=== PATIENT | male | born 1930 | race Caucasian/White ===

== ENCOUNTER 2017-03-13 20:37 | Inpatient (IN) | payer MEDICARE, BC ==
[2017-03-13 21:08] LABS: #Basophils 0.1 thou/uL (0.0-0.2); #Eosinphils 0.2 thou/uL (0.0-0.7); #Lymphocytes 1.1 thou/uL (1.20-3.40); #Monocytes 0.7 thou/uL (0.11-0.59); #Neutrophils 6.7 thou/uL (1.40-6.50); %Basophils 0.6 % (0.0-1.0); %Eosinophils 2.6 % (0.0-10.0); %Lymphocytes 12.4 % (21.0-51.0); Hematocrit 39.2 % (42.0-52.0); Mean Platelet Volume 6.2 fL (7.4-10.4); Red Blood Cell (RBC) Count 4.03 mill/uL (4.70-6.10); White Blood Cell (WBC) Count 8.8 thou/uL (4.8-10.8)
--- NOTE | 2017-03-13 21:17 | RAD ---
RADIOGRAPH CHEST 1 VIEW: Date: 03-13-17 Time: 8:52 p.m. HISTORY: 87-year-old male with dyspnea and chest tightness. COMPARISON: Although the patient has had numerous prior imaging studies, none of them involve the chest. FINDINGS: There are mild to moderate interstitial densities throughout the left mid and lower lung zones, and a t the right base. The rest of the right lung is relatively clear. No cardiomegaly or pneumothorax. IMPRESSION: Interstitial densities involving much of the left lung and the right base. It is uncertain whether th bryant are acute, chronic, or a combination of both. JANUSZ POS: AYO
[2017-03-13 21:28] LABS: ALT (SGPT) 11 U/L (8-55); AST (SGOT) 18 U/L (5-34); Alkaline Phosphatase 66 U/L (40-150); Anion Gap 11 mmol/L (10-20); BUN (Urea Nitrogen) 17 mg/dL (8.4-25.7); Bilirubin, Total 0.6 mg/dL (0.2-1.2); Calc. Creatinine Clearance 0 mL/min (70-130); Calcium 8.6 mg/dL (7.8-10.44); Carbon Dioxide 25 mmol/L (23-31); Chloride 93 mmol/L (98-107); Estimated GFR-MDRD 89; Globulin 3.2 g/dL (2.4-3.5); Protein, Total 6.9 g/dL (5.8-8.1)
[2017-03-13] MEDS ORDERED: Furosemide 40 MG/4 ML VIAL ONE (21:55)
[2017-03-13 22:30] LABS: Troponin I Less than 0.010 ng/mL (< 0.028)
[2017-03-13] MEDS ORDERED: Nitroglycerin 2% Ointment 1 INCH/1 GM Packet ONE (23:21)
--- NOTE | 2017-03-14 00:04 | PDOC.EVN ---
Event Note - Event Note Event Note: [id number] H&P Dictated 1. Acute CHF exacerbation 2. HTN 3. H/O BPH Plan: see orders
[2017-03-14 00:52] LABS: Prothrombin Time 13.4 SEC (12.0-14.7)
[2017-03-14 03:26] VITALS: BMI 30.6
[2017-03-14] MEDS: Acetaminophen 500 MG TAB PO PRN ×3 (03:42→20:55)
[2017-03-14 05:17] LABS: #Basophils 0.1 thou/uL (0.0-0.2); #Eosinphils 0.3 thou/uL (0.0-0.7); #Lymphocytes 1.6 thou/uL (1.20-3.40); #Monocytes 0.8 thou/uL (0.11-0.59); #Neutrophils 4.8 thou/uL (1.40-6.50); %Basophils 0.9 % (0.0-1.0); %Eosinophils 3.8 % (0.0-10.0); %Lymphocytes 20.5 % (21.0-51.0); %Monocytes 11.1 % (0.0-10.0); Hematocrit 37.7 % (42.0-52.0); Mean Platelet Volume 6.1 fL (7.4-10.4); Red Blood Cell (RBC) Count 3.92 mill/uL (4.70-6.10); White Blood Cell (WBC) Count 7.5 thou/uL (4.8-10.8)
[2017-03-14 05:34] LABS: Anion Gap 12 mmol/L (10-20); BUN (Urea Nitrogen) 14 mg/dL (8.4-25.7); Calc. Creatinine Clearance 95 mL/min (70-130); Calcium 8.7 mg/dL (7.8-10.44); Carbon Dioxide 27 mmol/L (23-31); Chloride 93 mmol/L (98-107); Estimated GFR-MDRD Greater than 90; Uric Acid 4.2 mg/dL (3.5-7.2)
[2017-03-14] MEDS: Furosemide 40 MG/4 ML VIAL SLOW IVP SCH ×2 (06:28→11:29)
--- NOTE | 2017-03-14 07:20 | HP ---
DATE OF ADMISSION: 03/13/2017 CHIEF COMPLAINT: Dyspnea. HISTORY OF PRESENT ILLNESS: The patient is an 87-year-old male with past medical history of congesti ve heart failure, hypertension, transient ischemic attack, benign prostatic hypertrophy, came to the ER complaining of dyspnea, dyspnea started few days back, dyspnea , lying flat. Denies chest pa in, denies any chest tightness. Complains of some low grade fever also. The patient complains of so me nausea and decreased p.o. intake and fatigue. The patient's symptoms persisted that is why he cam e to the ER. The patient complains of chronic lower extremity swelling, but swelling is more pronoun javier now, but improving with stockings. Denies any fever, denies any cough, denies sputum production. PAST MEDICAL HISTORY: As per HPI. PAST SURGICAL HISTORY: Colon resection. SOCIAL HISTORY: Positive for alcohol usage. Denies smoking. Denies any drugs. FAMILY HISTORY: Denies any heart problems. REVIEW OF SYSTEMS: Constitutional: Reports low grade fever. Denies any chills. Eyes: Denies any vision problems. Ears: Denies any hearing loss. Neck: Denies any neck pain. Cardiovascular syste m: Positive for chest pain, tightness, mild. Respiratory system: Positive for dyspnea. Gastrointe stinal: Positive for nausea. Cranial nerve system: Denies any syncope, denies lightheadedness. Mu sculoskeletal: Positive for bilateral lower extremity swelling. Integumentary: Denies any rash. A ll other review of systems are reviewed and are negative. PHYSICAL EXAMINATION: CONSTITUTIONAL/VITAL SIGNS: At the time of H&P performed, blood pressure is 150/71, pulse ox 96%, he art rate 61, respiratory rate 18. GENERAL APPEARANCE: The patient appears tired. HEENT: Anterior nares patent. NECK: Supple. No JVD. RESPIRATORY SYSTEM: Positive for crackles. Positive for occasional wheeze, no rhonchi. Normal effo rt. CARDIOVASCULAR SYSTEM: S1, S2 present. Regular rate and rhythm. No murmurs, no rubs, no gallops. GASTROINTESTINAL: Abdomen is soft, nontender, no guarding, no organomegaly, no masses felt. MUSCULOSKELETAL: Bilateral lower extremities, 2+ pitting edema present. Moves all joints. PSYCHIATRIC: Mood is appropriate at this time. INTEGUMENTARY: No obvious rashes seen. LABORATORY DATA: At the time of H&P performed, white count 8.8, hemoglobin 13, and platelet count is 262. BMP shows sodium 125, potassium 4.4, chloride 93, CO2 of 25, BUN of 17, creatinine 0.82. BNP 897, troponin less than 0.010. Chest x-ray positive for interstitial densities involving left lung a nd the right base. ASSESSMENT AND PLAN: The patient is an 87-year-old male. 1. Acute congestive heart failure exacerbation, possible systolic. Plan to start the patient on IV Lasix 40 mg b.i.d. Plan to monitor the patient closely. 2. Hyponatremia. Monitor sodium level closely. Plan to consult Nephrology to evaluate the patient and we will check repeat BMP in 4 hours. 3. History of hypertension. Monitor blood pressure. Continue home blood pressure medications. 4. History of benign prostatic hypertrophy. Continue Flomax. 5. History of transient ischemic attack. Continue Plavix. The case was discussed in detail with the patient and patient's family members also.
[2017-03-14] MEDS: Carvedilol 6.25 MG TAB PO SCH ×2 (08:58→20:55)
[2017-03-14] MEDS ORDERED: Lisinopril 10 MG TAB PO SCH (09:00)
[2017-03-14 11:18] LABS: Anion Gap 11 mmol/L (10-20); BUN (Urea Nitrogen) 15 mg/dL (8.4-25.7); Calc. Creatinine Clearance 89 mL/min (70-130); Calcium 8.4 mg/dL (7.8-10.44); Carbon Dioxide 29 mmol/L (23-31); Chloride 93 mmol/L (98-107); Estimated GFR-MDRD 87
--- NOTE | 2017-03-14 11:43 | CON ---
DATE OF CONSULTATION: 03/14/2017 REASON FOR CONSULTATION: Hyponatremia. HISTORY OF PRESENT ILLNESS: This is a very pleasant 87-year-old gentleman who presented to the [facility] early this morning with a 1 day history of dyspnea. The patient also had leg swelling and creati nine was normal. Sodium was 125 so we were consulted. PAST MEDICAL HISTORY: Congestive heart failure, TIA, dyspnea, BPH, colon resection. SOCIAL HISTORY: No alcohol or drug use. FAMILY HISTORY: Negative for ESRD. ALLERGIES: Reviewed. HOME MEDICATIONS: List reviewed. REVIEW OF SYSTEMS: A 15-point review of systems was performed and negative except positives noted ab ove. GENERAL: Weakness- HEAD: Headache- NECK: No swelling or lumps. NOSE: No epistaxis or discharge. EYES: No diplopia or pain. RESPIRATORY: Dyspnea- CARDIOVASCULAR: Chest pain- GASTROINTESTINAL: Nausea- /DIE CUTTING MACHINE OPERATOR: Hematuria- MUSCULOSKELETAL: No joint pain. NEUROPSYCHIATIC SYSTEMS: No suicidal ideation. No ideation. SKIN: Denies any rash or ulcer. CONSTITUTIONAL: No fever or chills. PHYSICAL EXAMINATION: GENERAL: Patient is awake, alert. VITAL SIGNS: Afebrile, pulse 75, breathing 16, blood pressure 150/71. OBJECTIVE: See above. Awake, alert, in no acute distress. GENERAL APPEARANCE AND MENTAL STATUS: Fair. HEAD/NECK: Normocephalic. Atraumatic. EYES: EOMI. No deformity. EARS: Clear. No ulcers. NOSE: Intact. No lesions. MOUTH: Clear. No discharge. THROAT: Clear. No exudate. LUNGS: Clear. No crackles. CARDIAC: S1, S2. No rub. ABDOMEN: Benign. BS+. GENITALIA/RECTUM: Moss absent. BACK/EXTREMITIES: Edema 0+ Ulcer- NEUROLOGICAL: Alert and motor intact. SKIN: Rash- Bruise- LYMPHATICS: Edema- Ulcer- LABORATORY: Hemoglobin 12.5, sodium 128. ASSESSMENT AND RECOMMENDATIONS: 1. Hyponatremia because of volume overload. Agree with Lasix. We will change Lasix to once a day a nd recheck sodium twice a day. 2. Hypoosmolality. 3. Hypokalemia, stable. 4. Medications based on glomerular filtration rate are appropriate. 5. Congestive heart failure, stable. No indication for hypertonic saline or Vaptan therapy. The above findings were discussed with the ally smith and his family who was present at bedside.
--- NOTE | 2017-03-14 15:16 | CON ---
DATE OF SERVICE: 03/14/2017 CARDIOLOGY CONSULTATION INDICATION FOR CONSULTATION: An 87-year-old gentleman with new onset of congestive heart failure. HISTORY OF PRESENT ILLNESS: This 87-year-old gentleman who has been followed by Dr. Huerta for qu ite some time now. He has a history of aortic valve stenosis as well as hypertension. He recently w as seen with some hyponatremia, I believe in an outside facility and was treated with diuretics and i mproved. He then yesterday started developing increasing shortness of breath and dyspnea. He was br ought to the hospital by his family and was admitted with some congestive heart failure symptoms and hyponatremia. At this time, he denied any chest pain. He does not have any significant shortness of breath at this time, but he is lying in the bed and is inactive. He did have an echocardiogram in [facility] of last year which showed an ejection fraction of 55%-60% with severe aortic valve stenosis, aort ic valve area 0.62 cm2. There has been no intervention or further workup for the aortic valve since that time. He does have mild mitral and tricuspid valve regurgitation also. At this time, he has di uresed quite a bit and is feeling better and will continue on his present medications. PAST MEDICAL HISTORY: Significant for hypertension, TIA, aortic valve stenosis, L1 burst fracture, h istory of colon cancer with colectomy. He also has obesity. SOCIAL HISTORY: He has 2 children who are alive and well. There is no alcohol or tobacco abuse. FAMILY HISTORY: Noncontributory. ALLERGIES: None. MEDICATIONS: Prior to admission included Coreg at 12.5 mg b.i.d. He is taking Plavix 75 mg a day, ca lcitonin, tamsulosin, takes timolol ophthalmic drops, Lumigan ophthalmic drops, lorazepam, tramadol, and hydrocortisone cream. REVIEW OF SYSTEMS: Twelve point review of systems is unremarkable except what was noted in the histo ry of present illness. He does have macular degeneration and takes ophthalmic drops. He also has ch ronic constipation and takes a stool softer on a daily basis at least every other day. PHYSICAL EXAMINATION: GENERAL: Reveals an elderly gentleman in no acute distress at this time. VITAL SIGNS: Blood pressure 156/70, he was given lisinopril and blood pressure decreased to 91/52, h eart rate is 73 and irregular. He is afebrile. O2 saturation 95%, respiratory rate 18. HEENT: Reveals head to be normocephalic and atraumatic. Carotid pulses are present. No bruits are noted. CHEST: Clear to auscultation. He has very minimal rales noted in the right base. CARDIOVASCULAR: There were no significant murmurs, heaves, thrills, bruits or rubs except for the ao rtic valve stenosis which is a 3/6 murmur which radiates to the upper sternal area. ABDOMEN: Shows obesity with positive bowel sounds. EXTREMITIES: Showed no clubbing or cyanosis. He has 1-2+ lower extremity edema in lower legs and th e ankle area. Pedal pulses are present. NEUROLOGIC: The patient appears to be intact. IMAGING DATA: EKG shows normal sinus rhythm with a right bundle branch block. LABORATORY DATA: Shows sodium of 129, potassium 3.6, creatinine 0.83. His BNP was 897. IMPRESSION: 1. New onset congestive heart failure which may be due to volume overload associated with perhaps di astolic dysfunction or due to his aortic valve stenosis or due to just volume overload. I would agre e with some diuresis. At this time he seems to have improved already after starting diuresis. I wou ld need to reevaluate the aortic valve by echocardiogram to see whether or not this may be more signi ficant stenosis and this has been his thought. He may eventually need to undergo cardiac catheteriza tion to determine the exact gradient across the aortic valve indeterminate size. He may be a trudy te to undergo a TAVR versus consensual aortic valve replacement if this is so indicated. 2. Hyponatremia and hypokalemia. These will be treated medically and he seems to be improving. We will await results of the echocardiogram prior to further recommendations per Dr. Huerta who will resume his care when he sees him tomorrow.
--- NOTE | 2017-03-14 16:27 | PDOC.PN ---
- Subjective Encounter Start Date: 03/14/17 Encounter Start Time: 16:25 Subjective: Seen and examined -transient hypotension noted earlier today - Objective Vital Signs & Weight: Vital Signs (12 hours) Temp Pulse Resp BP Pulse Ox 03/14/17 12:21 98.1 F 59 L 16 128/59 L 95 03/14/17 11:00 91/52 L 03/14/17 08:45 97.3 F L 73 18 156/70 H 95 03/14/17 08:05 97.3 F L 73 18 Weight Weight 225 lb 1.6 oz I&O: 03/13/17 03/14/17 03/15/17 06:59 06:59 06:59 Intake Total 360 Output Total 800 Balance -440 Result Diagrams: 03/14/17 05:03 03/14/17 10:24 Phys Exam - Physical Examination Constitutional: NAD HEENT: PERRLA, moist MMs, sclera anicteric, TM's clear Neck: no nodes, no JVD, supple, full ROM Respiratory: no wheezing, no rales, no rhonchi, clear to auscultation bilateral Cardiovascular: RRR, no significant murmur, no rub Gastrointestinal: soft, non-tender, no distention, positive bowel sounds Musculoskeletal: pulses present, edema present Dx/Plan (1) Hypotension Status: Acute (2) CHF (congestive heart failure) Code(s): I50.9 - HEART FAILURE, UNSPECIFIED Status: Acute (3) Hyponatremia Code(s): E87.1 - HYPO-OSMOLALITY AND HYPONATREMIA Status: Acute Comment: Improving, [id number] (4) Aortic stenosis, severe Code(s): I35.0 - NONRHEUMATIC AORTIC (VALVE) STENOSIS Status: Chronic (5) BPH (benign prostatic hyperplasia) Code(s): N40.0 - BENIGN PROSTATIC HYPERPLASIA WITHOUT LOWER URINRY TRACT SYMP Status: Chronic - Plan plan discussed w/ family, PT/OT, respiratory therapy Reduce Acei dose -: monitor oerthostasis and BP -: Cardiology/Renal following -: Dispo planning * .
[2017-03-14 16:41] LABS: Anion Gap 10 mmol/L (10-20); BUN (Urea Nitrogen) 18 mg/dL (8.4-25.7); Calc. Creatinine Clearance 81 mL/min (70-130); Calcium 8.7 mg/dL (7.8-10.44); Carbon Dioxide 30 mmol/L (23-31); Chloride 93 mmol/L (98-107); Estimated GFR-MDRD 79
[2017-03-14] MEDS: Clopidogrel Bisulfate 75 MG TAB PO SCH (20:54)
[2017-03-15 05:28] LABS: Troponin I Less than 0.010 ng/mL (< 0.028)
[2017-03-15] MEDS: Furosemide 40 MG/4 ML VIAL SLOW IVP SCH ×2 (06:08→14:44)
--- NOTE | 2017-03-15 08:04 | PRG ---
DATE OF SERVICE: 03/15/2017 Mr. Torre is feeling much better. His shortness of breath has improved. He has diuresed. PHYSICAL EXAMINATION: VITAL SIGNS: Blood pressure 157/70, pulse 89, TEMPERATURE 97.7. LUNGS: Clear to auscultation. CARDIAC: Regular rate and rhythm with a 2/6 systolic ejection murmur. ABDOMEN: Soft. Nontender. EXTREMITIES: No edema. PERTINENT LABORATORY DATA: Hemoglobin 12.5, creatinine 0.91. Echo with Doppler shows severe aortic stenosis with valve area 0.68 with a mean peak gradient of 90 a nd 70. IMPRESSION: 1. Severe aortic stenosis. 2. Shortness of breath. RECOMMENDATIONS: I had a long discussion with Mr. Torre as well as his son about options. We discus sed SVAR versus TVAR in addition to medical therapy. I did state that medical therapy in this case would not be indicated. I did have a long discussion with the progression of workup including left a nd right heart catheterization in addition to a consultation with a surgeon to determine his risk. I f felt to be an increased risk, I discussed consideration for TVAR. I discussed coronary angiography with possible PCI in full detail. The risks of the procedure included, but are not limited to the f ollowing: , stroke, [place], need for emergency surgery, loss of limb, bleeding, and infection, as w ell as a reaction to the dye causing kidney failure and needing long-term dialysis. I also discussed the risks of PCI to include all of the above including coronary dissection and perforation in additi on to acute stent thrombosis and restenosis. All questions about the procedure were answered. Given the above, the patient agreed to proceed with coronary angiography and possible PCI. I also discussed right heart catheterization. Otherwise, at this point, I have no further recommenda tions.
[2017-03-15] MEDS: Lisinopril 2.5 MG TAB PO SCH (08:59)
[2017-03-15] MEDS: Carvedilol 6.25 MG TAB PO SCH ×2 (09:00→20:09)
--- NOTE | 2017-03-15 09:11 | PRG ---
DATE OF SERVICE: 03/15/2017 SUBJECTIVE: This is an 87-year-old gentleman being seen for hyponatremia. The patient denies any na usea, vomiting, or chest pain. PHYSICAL EXAMINATION: GENERAL: Patient is awake, alert. VITAL SIGNS: Afebrile, pulse 58, breathing at 16, blood pressure 121/60. OBJECTIVE: See above. Awake, alert, in no acute distress. GENERAL APPEARANCE AND MENTAL STATUS: Fair. HEAD/NECK: Normocephalic. Atraumatic. EYES: EOMI. No deformity. EARS: Clear. No ulcers. NOSE: Intact. No lesions. MOUTH: Clear. No discharge. THROAT: Clear. No exudate. LUNGS: Clear. No crackles. CARDIAC: S1, S2. No rub. ABDOMEN: Benign. BS+. GENITALIA/RECTUM: Moss absent. BACK/EXTREMITIES: Edema 0+ Ulcer- NEUROLOGICAL: Alert and motor intact. SKIN: Rash- Bruise- LYMPHATICS: Edema- Ulcer- LABORATORY: Hemoglobin 12.5, sodium is pending. ASSESSMENT AND RECOMMENDATIONS: 1. Stage II chronic kidney disease, stable. 2. Hyponatremia. We will recheck sodium today. 3. Hypertension, stable. 4. Medications based on glomerular filtration rate are appropriate. 5. 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
[2017-03-15 10:21] LABS: Anion Gap 12 mmol/L (10-20); BUN (Urea Nitrogen) 17 mg/dL (8.4-25.7); Calc. Creatinine Clearance 86 mL/min (70-130); Carbon Dioxide 30 mmol/L (23-31); Chloride 91 mmol/L (98-107); Estimated GFR-MDRD 85
[2017-03-15] MEDS ORDERED: Heparin 1000 UNIT/NS 500ML(OR) 1,000 ML ONE (11:23)
[2017-03-15] MEDS ORDERED: Communication Order-Pharmacy FS SCH (12:15)
[2017-03-15] MEDS ORDERED: Sodium Chloride 0.9% 1,000 ML IV SCH ×2 (12:15→13:15)
[2017-03-15] MEDS ORDERED: Heparin 1000 UNIT/NS 500ML(OR) 500 ML ONE (12:35)
[2017-03-15] MEDS ORDERED: Acetaminophen/Codeine 30-300mg Tablet PO PRN ×2 (13:02)
[2017-03-15] MEDS ORDERED: Nitroglycerin 0.4 MG TAB (25 Tab Bottle) SL PRN (13:02)
[2017-03-15] MEDS ORDERED: traMADol HCl 50 MG TAB PO PRN (13:02)
[2017-03-15] MEDS ORDERED: Sodium Chloride 0.9% 200 ML IV SCH (13:15)
[2017-03-15] MEDS ORDERED: Iopamidol 370 76% 100 ML VIAL ONE (17:05)
[2017-03-15] MEDS: Latanoprost 0.005% Ophth Soln 2.5 ml Bottle EA EYE SCH (20:09)
[2017-03-15] MEDS: Clopidogrel Bisulfate 75 MG TAB PO SCH (20:09)
--- NOTE | 2017-03-15 22:26 | CON ---
DATE OF CONSULTATION: 03/15/2017 HISTORY OF PRESENT ILLNESS: This is an 87-year-old gentleman admitted with congestive heart failure symptoms. He has had progressive dyspnea and lower extremity edema. He has been followed by Dr. Rick skinner for at least the past 6-10 years. His medical diagnoses include hypertension. Last year, he suffered a compression fracture at the L3 vertebral body and cardiac echo at that time demonstrated s [id number] aortic valve stenosis. Repeat echo was done this admission; however, the final rep ort is not available, but the preliminary report suggested a peak gradient of about 80 with a valve a ramos of 0.65, which is similar, I believe, to the echo about a year and a half ago. In addition, he h as undergone cardiac catheterization demonstrating severe circumflex disease prior to a distal obtuse marginal and severe proximal LAD disease proximal to an LAD diagonal bifurcation with only mild righ t coronary artery disease. PAST MEDICAL HISTORY: As mentioned, his past medical history includes a diagnosis of hypertension as well as obesity. He has had a prior transient ischemic attack and has prostatic hypertrophy. PAST SURGICAL HISTORY: Includes colon resection and arthroplasty for the L3 burst fracture. SOCIAL HISTORY: He is a retired vice president of engineering, lives alone, although has a daughter and son who pro vide nearly 24-hour assistance. He gets around with a wheeled walker and does walk in the driveway e veryday. IMAGING STUDIES: Chest x-ray is unremarkable. LABORATORY VALUES: Notable for a creatinine of 0.9 and a hemoglobin of 12.8. He does have a first-d egree AV block as well as a bundle branch block. PHYSICAL EXAMINATION: To follow. At this time, the patient is recovering from his cardiac catheterization and a recent bout of congest marvel heart failure. MEDICATIONS: Prior to admission included eye drops, Plavix 75 a day, Flomax 0.4 a day, MiraLax daily , aspirin 81 a day, Coreg 12.5 b.i.d., lorazepam 0.5 p.r.n. Since in the hospital, he has had the ad dition of Lasix periodic IV push as well as 2.5 of lisinopril daily. ASSESSMENT AND PLAN: I have had a long discussion with the son and daughter and at this time, I thin k the patient should be medically managed for his heart failure and discharged off his Plavix and I w ill see him back in the office in a couple of weeks and if he is functionally recovered from his hosp ital stay, consider aortic valve replacement and coronary bypass grafting to the left anterior descen ding and obtuse marginal. Preliminary STS risk factors without complete echocardiogram results sugge st a mortality of 5.7%, morbidity of 31%, stroke of about 3%, renal failure of about 10%, and re-oper ation of about 11%.
[2017-03-16 06:11] LABS: Anion Gap 13 mmol/L (10-20); BUN (Urea Nitrogen) 17 mg/dL (8.4-25.7); Calc. Creatinine Clearance 89 mL/min (70-130); Calcium 8.5 mg/dL (7.8-10.44); Carbon Dioxide 28 mmol/L (23-31); Chloride 93 mmol/L (98-107); Estimated GFR-MDRD 89
[2017-03-16] MEDS: Carvedilol 6.25 MG TAB PO SCH ×2 (06:13→20:56)
[2017-03-16] MEDS: Furosemide 40 MG/4 ML VIAL SLOW IVP SCH ×2 (06:28→20:00)
[2017-03-16] MEDS: Acetaminophen 500 MG TAB PO PRN ×2 (08:31→20:48)
[2017-03-16] MEDS: Lisinopril 2.5 MG TAB PO SCH (08:32)
[2017-03-16 09:07] LABS: #Eosinphils 0.3 thou/uL (0.0-0.7); #Lymphocytes 1.1 thou/uL (1.20-3.40); #Monocytes 1.1 thou/uL (0.11-0.59); #Neutrophils 5.8 thou/uL (1.40-6.50); %Basophils 0.5 % (0.0-1.0); %Eosinophils 3.3 % (0.0-10.0); %Lymphocytes 13.1 % (21.0-51.0); %Monocytes 13.1 % (0.0-10.0); Hematocrit 39.5 % (42.0-52.0); Mean Platelet Volume 6.2 fL (7.4-10.4); Red Blood Cell (RBC) Count 4.06 mill/uL (4.70-6.10); White Blood Cell (WBC) Count 8.3 thou/uL (4.8-10.8)
[2017-03-16 09:38] LABS: Anion Gap 12 mmol/L (10-20); BUN (Urea Nitrogen) 19 mg/dL (8.4-25.7); Calc. Creatinine Clearance 73 mL/min (70-130); Calcium 8.8 mg/dL (7.8-10.44); Carbon Dioxide 29 mmol/L (23-31); Chloride 93 mmol/L (98-107); Estimated GFR-MDRD 75
[2017-03-16] MEDS: Calcitonin,Salmon,Synthetic 200 Units 3.7 ML PUMP FS SCH (10:06)
[2017-03-16] MEDS ORDERED: Sodium Chloride 0.9% 250 ML 250 ML IVPB SCH (10:15)
--- NOTE | 2017-03-16 12:50 | ADD-CON ---
ADDENDUM Of my consult from yesterday. I had a chance to examine the patient today with the family present. He is alert and cooperative, re ceiving an IV bolus of fluid for slightly depressed blood pressure, although he is not symptomatic. Neck exam, I do not appreciate any bruits. Cardiac exam, he has a harsh systolic murmur across the p recordium. Lungs are clear to auscultation. Abdomen was obese and nontender. Extremities, he has p alpable femoral and popliteal pulses and I do not appreciate any pedal pulses and he does not have an y peripheral edema today. I once again discussed the situation this time with the patient primarily going over the options of s urgical intervention and risks and recovery issues. I have given the son, the STS risk stratificatio n for the patient based on the numbers that I had available last night. His final echo report has be come available with a peak gradient of about 90, mean gradient of about 50 and an aortic valve area o f about 0.65. Peak velocity is about 485 cm per second. The patient will follow up with me next tue if he wishes to discuss this further. If he wishes to have surgery, he can call the office and t that scheduled and if he does not wish to have any intervention, then he will need to follow up liliam Huerta for medical management.
--- NOTE | 2017-03-16 14:23 | PRG ---
DATE OF SERVICE: 03/16/2017 SUBJECTIVE: An 87-year-old gentleman being seen for hyponatremia. The patient denies any nausea, vo miting, or chest pain. OBJECTIVE: See above. GENERAL: Patient is awake, alert. VITAL SIGNS: Afebrile, pulse 59, breathing at 16, blood pressure 126/56. GENERAL APPEARANCE AND MENTAL STATUS: Fair. HEAD/NECK: Normocephalic. Atraumatic. EYES: EOMI. No deformity. EARS: Clear. No ulcers. NOSE: Intact. No lesions. MOUTH: Clear. No discharge. THROAT: Clear. No exudate. LUNGS: Clear. No crackles. CARDIAC: S1, S2. No rub. ABDOMEN: Benign. BS+. GENITALIA/RECTUM: Moss absent. BACK/EXTREMITIES: Edema 0+, ulcer. NEUROLOGICAL: Alert and motor intact. SKIN: Rash - bruise. LYMPHATICS: Edema - ulcer. LABORATORY DATA: Labs show sodium 130. ASSESSMENT AND RECOMMENDATIONS: 1. Chronic kidney disease, stage 2, stable. 2. Hyponatremia, improved. We will continue fluid restriction. 3. Medications based on glomerular filtration rate are appropriate. No indication for hypertonic sa line. I will sign off on this patient. Please reconsult as needed.
[2017-03-16] MEDS ORDERED: Potassium Chloride 20 MEQ TAB PO SCH (14:30)
--- NOTE | 2017-03-16 14:41 | PDOC.PN ---
- Subjective Encounter Start Date: 03/15/17 Encounter Start Time: 14:39 Patient seen and examined. No new complaints. No overnight events - Objective MAR Reviewed: Yes Vital Signs & Weight: Vital Signs (12 hours) Temp Pulse Resp BP BP Pulse Ox 03/16/17 11:21 97.3 F L 59 L 20 145/65 H 95 03/16/17 08:32 65 82/48 L 03/16/17 06:13 126/56 L 03/16/17 04:00 97.5 F L 61 20 122/58 L 100 Weight Weight 212 lb 3 oz I&O: 03/15/17 03/16/17 03/17/17 06:59 06:59 06:59 Intake Total 1144 1580 Output Total 1780 3850 Balance -236 -3640 Result Diagrams: 03/16/17 08:53 03/16/17 08:53 Phys Exam - Physical Examination Constitutional: NAD HEENT: PERRLA Neck: no JVD bibasilar rales Cardiovascular: no significant murmur Gastrointestinal: non-tender Musculoskeletal: edema present Neurological: moves all 4 limbs Psychiatric: A&O x 3 Dx/Plan (1) Diastolic CHF, acute on chronic Code(s): I50.33 - ACUTE ON CHRONIC DIASTOLIC (CONGESTIVE) HEART FAILURE Status : Acute Comment: ef- 55% (2) Compression fracture of L3 lumbar vertebra Code(s): S32.030A - WEDGE COMPRESSION FRACTURE OF THIRD LUMBAR VERTEBRA, INIT Status: Acute Comment: s/p kyphoplasty (3) Hyponatremia Code(s): E87.1 - HYPO-OSMOLALITY AND HYPONATREMIA Status: Acute Comment: Improving, [id number] (4) Physical deconditioning Code(s): R53.81 - OTHER MALAISE Status: Acute (5) Anxiety and depression Code(s): F41.9 - ANXIETY DISORDER, UNSPECIFIED; F32.9 - MAJOR DEPRESSIVE DISORDER, SINGLE EPISODE, UNSPECIFIED Status: Chronic (6) Aortic stenosis, severe Code(s): I35.0 - NONRHEUMATIC AORTIC (VALVE) STENOSIS Status: Chronic (7) BPH (benign prostatic hyperplasia) Code(s): N40.0 - BENIGN PROSTATIC HYPERPLASIA WITHOUT LOWER URINRY TRACT SYMP Status: Chronic (8) Hypertension Code(s): I10 - ESSENTIAL (PRIMARY) HYPERTENSION Status: Chronic Comment: BP improved. - Plan * cardiac rehab * cont diuresis * f/u card plan * re evaluate for surg as out pt
--- NOTE | 2017-03-16 14:43 | PDOC.PN ---
- Subjective Encounter Start Date: 03/16/17 Encounter Start Time: 14:41 breathing better no cp had pci 03/15 no n/v - Objective MAR Reviewed: Yes Vital Signs & Weight: Vital Signs (12 hours) Temp Pulse Resp BP BP Pulse Ox 03/16/17 11:21 97.3 F L 59 L 20 145/65 H 95 03/16/17 08:32 65 82/48 L 03/16/17 06:13 126/56 L 03/16/17 04:00 97.5 F L 61 20 122/58 L 100 Weight Weight 212 lb 3 oz I&O: 03/15/17 03/16/17 03/17/17 06:59 06:59 06:59 Intake Total 1144 1580 Output Total 1780 3850 Balance -376 -3320 Result Diagrams: 03/16/17 08:53 03/16/17 08:53 Phys Exam - Physical Examination Constitutional: NAD HEENT: PERRLA Neck: no JVD bibasilar rales Cardiovascular: RRR Gastrointestinal: non-tender Musculoskeletal: edema present Neurological: moves all 4 limbs Psychiatric: A&O x 3 Dx/Plan (1) Diastolic CHF, acute on chronic Code(s): I50.33 - ACUTE ON CHRONIC DIASTOLIC (CONGESTIVE) HEART FAILURE Status : Acute Comment: ef- 55% (2) Compression fracture of L3 lumbar vertebra Code(s): S32.030A - WEDGE COMPRESSION FRACTURE OF THIRD LUMBAR VERTEBRA, INIT Status: Acute Comment: s/p kyphoplasty (3) Hyponatremia Code(s): E87.1 - HYPO-OSMOLALITY AND HYPONATREMIA Status: Acute Comment: Improving, Ld=375 (4) Physical deconditioning Code(s): R53.81 - OTHER MALAISE Status: Acute (5) Anxiety and depression Code(s): F41.9 - ANXIETY DISORDER, UNSPECIFIED; F32.9 - MAJOR DEPRESSIVE DISORDER, SINGLE EPISODE, UNSPECIFIED Status: Chronic (6) Aortic stenosis, severe Code(s): I35.0 - NONRHEUMATIC AORTIC (VALVE) STENOSIS Status: Chronic (7) BPH (benign prostatic hyperplasia) Code(s): N40.0 - BENIGN PROSTATIC HYPERPLASIA WITHOUT LOWER URINRY TRACT SYMP Status: Chronic (8) Hypertension Code(s): I10 - ESSENTIAL (PRIMARY) HYPERTENSION Status: Chronic Comment: BP improved. - Plan * cont current mx * * f/u card plan
--- NOTE | 2017-03-16 15:35 | PRG ---
DATE OF SERVICE: 03/16/2017 SUBJECTIVE: Mr. Torre is doing well. No current complaints. He did visit with Dr. Todd Weldon with the recommendations below. OBJECTIVE: VITAL SIGNS: Blood pressure is 145/65, pulse is 59 and temperature is 97.3. LUNGS: Clear to auscultation. HEART: Regular rate and rhythm. ABDOMEN: Soft, nontender and nondistended. EXTREMITIES: No edema. IMPRESSION: 1. Severe aortic stenosis. 2. Severe left main disease. RECOMMENDATIONS: Mr. Torre has spoken with Dr. Weldon at length. They have decided to proceed with precious pryor as an outpatient. They would like to increase his ambulation prior to proceeding with AVR a nd bypass surgery. Several questions were answered. From my standpoint, it would be okay for discha harvey from a cardiac standpoint. We will continue aspirin in addition with carvedilol. We would stop Plavix and continue lisinopril.
[2017-03-16] MEDS: Latanoprost 0.005% Ophth Soln 2.5 ml Bottle EA EYE SCH (21:14)
[2017-03-17 05:49] LABS: Anion Gap 12 mmol/L (10-20); BUN (Urea Nitrogen) 23 mg/dL (8.4-25.7); Calc. Creatinine Clearance 86 mL/min (70-130); Calcium 8.3 mg/dL (7.8-10.44); Carbon Dioxide 26 mmol/L (23-31); Chloride 95 mmol/L (98-107); Estimated GFR-MDRD 90; Phosphorus 3.7 mg/dL (2.3-4.7)
[2017-03-17] MEDS: Acetaminophen 500 MG TAB PO PRN (06:23)
[2017-03-17] MEDS: Furosemide 40 MG/4 ML VIAL SLOW IVP SCH ×2 (06:25→14:56)
[2017-03-17] MEDS: Calcitonin,Salmon,Synthetic 200 Units 3.7 ML PUMP FS SCH (07:50)
[2017-03-17] MEDS: Carvedilol 6.25 MG TAB PO SCH (07:52)
[2017-03-17] MEDS: Lisinopril 2.5 MG TAB PO SCH (07:52)
--- NOTE | 2017-03-17 13:20 | PDOC.PN ---
- Subjective Encounter Start Date: 03/17/17 Encounter Start Time: 13:18 Patient seen and examined. No new complaints. No overnight events - Objective MAR Reviewed: Yes Vital Signs & Weight: Vital Signs (12 hours) Temp Pulse Resp BP BP Pulse Ox 03/17/17 11:10 98.5 F 57 L 13 148/67 H 96 03/17/17 07:52 56 L 03/17/17 07:47 98.1 F 56 L 16 154/70 H 96 03/17/17 06:27 56 L 20 138/67 Weight Weight 217 lb 2 oz I&O: 03/16/17 03/17/17 03/18/17 06:59 06:59 06:59 Intake Total 1580 240 Output Total 3850 400 Balance -2270 -160 Result Diagrams: 03/16/17 08:53 03/17/17 05:03 Phys Exam - Physical Examination Constitutional: NAD HEENT: PERRLA Neck: no JVD Respiratory: no wheezing Cardiovascular: no significant murmur luis armando Gastrointestinal: non-tender Musculoskeletal: pulses present Neurological: moves all 4 limbs Psychiatric: A&O x 3 Dx/Plan (1) Diastolic CHF, acute on chronic Code(s): I50.33 - ACUTE ON CHRONIC DIASTOLIC (CONGESTIVE) HEART FAILURE Status : Acute Comment: ef- 55% (2) Compression fracture of L3 lumbar vertebra Code(s): S32.030A - WEDGE COMPRESSION FRACTURE OF THIRD LUMBAR VERTEBRA, INIT Status: Acute Comment: s/p kyphoplasty (3) Hyponatremia Code(s): E87.1 - HYPO-OSMOLALITY AND HYPONATREMIA Status: Acute Comment: Improving, Ia=470 (4) Physical deconditioning Code(s): R53.81 - OTHER MALAISE Status: Acute (5) Anxiety and depression Code(s): F41.9 - ANXIETY DISORDER, UNSPECIFIED; F32.9 - MAJOR DEPRESSIVE DISORDER, SINGLE EPISODE, UNSPECIFIED Status: Chronic (6) Aortic stenosis, severe Code(s): I35.0 - NONRHEUMATIC AORTIC (VALVE) STENOSIS Status: Chronic (7) BPH (benign prostatic hyperplasia) Code(s): N40.0 - BENIGN PROSTATIC HYPERPLASIA WITHOUT LOWER URINRY TRACT SYMP Status: Chronic (8) Hypertension Code(s): I10 - ESSENTIAL (PRIMARY) HYPERTENSION Status: Chronic Comment: BP improved. - Plan * doing well * d/c home * cardiac rehab in place * out pt f/u with card and cvts
[2017-03-17 16:12] VITALS: BP 152/69; TEMP 95.8
--- NOTE | 2017-03-17 16:53 | DIS ---
DATE OF ADMISSION: 03/14/2017 DATE OF DISCHARGE: 03/17/2017 DISCHARGE DIAGNOSES: 1. Coronary artery disease of left main and left anterior descending. 2. Severe aortic stenosis. 3. Acute on chronic diastolic congestive heart failure with ejection fraction of 55%, stable. 4. Hypertension. 5. Transient ischemic attack, stable. 6. Benign prostatic hyperplasia, stable. 7. Also, physical deconditioning. 8. Anxiety and depression, stable. 9. Compression fracture of the L3 vertebra. CONSULTANTS: The patient's consultants on the case were Cardiology and Cardiovascular-Thoracic Surge ry. DISPOSITION: To home with cardiac rehabilitation. DISCHARGE MEDICATIONS: The patient's medications on discharge include all home medications plus no P lavix as per Cardiology, 81 mg of aspirin p.o. daily, Coreg 6.25 mg p.o. b.i.d., Lasix 40 mg p.o. elliott ly, and continuation of other home medications. BRIEF HOSPITAL COURSE: This is an 87-year-old pleasant gentleman, who came into the hospital with dy spnea. Please refer to the admitting physician's H and P for further details. The patient was diagn osed with diastolic congestive heart failure exacerbation and was put on medications for that and giv en Lasix. He also had a cardiac catheterization done on the , which showed severe left main dise ase, LAD disease, and aortic stenosis, and they recommended CABG and AVR. The patient was seen by Ca rdiovascular-thoracic surgeon, who said that the patient needs to gain some strength to improve the c hances of success post surgery. Right now, patient is medically managed for the congestive heart earle lure. He is doing much better with respect to that. Cardiac rehab has been in place. They are work ing with him to improve his physical conditioning. He is right now medically stable to be discharged with outpatient followup with Cardiology and Cardiovascular-Thoracic Surgery and they will come up w ith a date as an outpatient for the possible surgery. He is right now medically stable to be dischar ged. He is asked to come back to the emergency room in case symptoms recur. Total time for this discharge took 35 minutes.
== END 2017-03-17 17:12 | disposition home health service (06) | DRG 286 ==
LOC: ERS 20:37 → 2NO 03-14 01:00
PROVIDERS: ADMIT Internal Medicine; ATTEND Internal Medicine
PROC: B2111ZZ Fluoroscopy of Multiple Coronary Arteries using Low Osmolar Contrast (ICD-10-PCS; principal; 2017-03-15)
DX: I13.0 Hypertensive heart and chronic kidney disease with heart failure and stage 1 through stage 4 chronic kidney disease, or unspecified chronic kidney disease (principal); I50.33 Acute on chronic diastolic (congestive) heart failure; I95.89 Other hypotension; E22.2 Syndrome of inappropriate secretion of antidiuretic hormone; N18.2 Chronic kidney disease, stage 2 (mild); I25.10 Atherosclerotic heart disease of native coronary artery without angina pectoris; I35.0 Nonrheumatic aortic (valve) stenosis; F32.9 Major depressive disorder, single episode, unspecified; F41.9 Anxiety disorder, unspecified; N40.0 Benign prostatic hyperplasia without lower urinary tract symptoms; Z86.73 Personal history of transient ischemic attack (TIA), and cerebral infarction without residual deficits; E66.9 Obesity, unspecified; Z79.02 Long term (current) use of antithrombotics/antiplatelets; K59.09 Other constipation; E87.6 Hypokalemia; H35.30 Unspecified macular degeneration; S32.031S Stable burst fracture of third lumbar vertebra, sequela
CPT/HCPCS: 36415; 36416; 71010; 76942; 80048; 80053; 80069; 82553; 83880; 83930; 83935; 84484; 84550; 85025; 85610; 93005; 93306; 93454; 93798; A4216; C1760; C1769; J1644; J1940

== ENCOUNTER 2018-05-02 17:28 | Emergency (ER) | payer MEDICARE, BC ==
[2018-05-02] MEDS ORDERED: HYDROcodone/Acetaminophen 5/325 mg Tablet ONE (19:38)
[2018-05-02 20:22] LABS: #Basophils 0.1 thou/uL (0.0-0.2); #Eosinphils 0.3 thou/uL (0.0-0.7); #Lymphocytes 1.5 thou/uL (1.20-3.40); #Monocytes 0.7 thou/uL (0.11-0.59); %Basophils 1.1 % (0.0-1.0); %Eosinophils 3.5 % (0.0-10.0); %Lymphocytes 19.5 % (21.0-51.0); %Monocytes 9.2 % (0.0-10.0); %Neutrophils 66.7 % (42.0-75.0); Hemoglobin 12.7 g/dL (14.0-18.0); Mean Corpuscular HGB CONC 32.3 g/dL (32.0-36.0); Mean Corpuscular Hemoglobin 30.7 pg (27.0-31.0); Mean Platelet Volume 6.4 fL (7.4-10.4); Platelet Count 287 thou/uL (130-400); RBC Distribution Width 12.1 % (11.5-14.5); Red Blood Cell (RBC) Count 4.14 mill/uL (4.70-6.10); White Blood Cell (WBC) Count 7.5 thou/uL (4.8-10.8)
--- NOTE | 2018-05-02 20:34 | CT ---
HISTORY: Bilateral hip pain. CT pelvis obtained. Coronal reconstructed images performed. CT images pelvis demonstrates no evidence of acute pelvic fractures. IMPRESSION: No CT evidence of fracture seen. POS: AYO
[2018-05-02 20:46] LABS: ALT (SGPT) 11 U/L (8-55); AST (SGOT) 17 U/L (5-34); Albumin 3.6 g/dL (3.4-4.8); Alkaline Phosphatase 76 U/L (40-150); Anion Gap 12 mmol/L (10-20); BUN (Urea Nitrogen) 12 mg/dL (8.4-25.7); Bilirubin, Total 0.4 mg/dL (0.2-1.2); Calc. Creatinine Clearance 0 mL/min (70-130); Calcium 9.2 mg/dL (7.8-10.44); Carbon Dioxide 26 mmol/L (23-31); Chloride 98 mmol/L (98-107); Estimated GFR-MDRD 79; Globulin 2.9 g/dL (2.4-3.5); Glucose 104 mg/dL (83-110); Potassium 3.9 mmol/L (3.5-5.1); Protein, Total 6.5 g/dL (5.8-8.1); Sodium 132 mmol/L (136-145)
--- NOTE | 2018-05-02 21:09 | CT ---
CT LUMBAR SPINE 05/02/18 COMPARISON: Comparison made to previous exam from 10/06/15. Axial images are obtained with coronal and sagittal reconstructions. 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 There is vertebra plana with complete collapse of the L1 vertebral body unchanged since the previous exam. This has resulted in posterior displacement of the L1 vertebrae into the spinal canal resulting in moderate to severe central and lateral recess stenosis unchanged since the previous comparison CT from 2014. There does appears to be previous old L3 fracture which has undergoing vertebroplasty. There is some height loss at the L3 level compared to the 2016 exam. Multilevel vacuum disc changes seen at T12-L1, L1-2, L2-3, L3-4, L4-5, L5-S1. Extensive chronic degen erative changes seen involving multiple facets bilaterally. No significant interval changes seen sinc e the 2016 exam except for the above mentioned vertebroplasty. IMPRESSION: Extensive lumbar degenerative changes as described above. POS: AYO
== END 2018-05-02 23:25 | disposition home or self-care (01) ==
LOC: ERS 17:28
DX: M54.16 Radiculopathy, lumbar region (principal); I11.0 Hypertensive heart disease with heart failure; I50.9 Heart failure, unspecified; E53.8 Deficiency of other specified B group vitamins; Z86.73 Personal history of transient ischemic attack (TIA), and cerebral infarction without residual deficits; Z79.899 Other long term (current) drug therapy; Z79.82 Long term (current) use of aspirin
CPT/HCPCS: 36415; 72131; 72192; 80053; 85025